=== PATIENT | male | born 1945 | race Caucasian/White ===

== ENCOUNTER 2021-02-17 02:22 | Emergency (ER) | payer MEDICARE, OTHER ==
[~2021-02-17] VITALS: Ht 175.3 cm; Wt 114.0 kg
[2021-02-17] MEDS ORDERED: IV NORMAL SALINE 1000ML BAG 1,000 ML IV SCH (02:30)
--- NOTE | 2021-02-17 02:40 | PHYS DOC ---
General Adult EDM: Chief Complaint: ABDOMINAL PAIN HPI: HPI: 75-year-old male past medical history significant for CVA with left-sided deficits, A. fib on Xarelto, CAD, PVD, hypertension, hyperlipidemia with condom catheter, presents to the ED BIBEMS from [facility] (concerned for [facility]) from home with complaints of left lower quadrant and left upper quadrant abdominal pain that started on Sunday. Last BM was today - brown, no brown, normal consistency. (JOSEPH WILLARD DO) Review of Systems: Review of Systems: Constitutional: Denies fever or chills. [] Eyes: Denies change in visual acuity. [] HENT: Denies nasal congestion or sore throat. [] Respiratory: Denies cough or shortness of breath. [] Cardiovascular: Denies chest pain or edema. [] GI: Denies nausea, vomiting, melena, hematochezia, hematemesis : Denies dysuria or hematuria Musculoskeletal: Denies back pain or joint pain. [] Integument: Denies rash or diaphoresis Neurologic: Denies headache, focal weakness or sensory changes. [] Endocrine: Denies polyuria or polydipsia. [] Lymphatic: Denies swollen glands. [] Psychiatric: Denies depression or anxiety. [] (JOSEPH WILLARD DO) Heart Score: C/O Chest Pain: No Risk Factors: Risk Factors: DM, Current or recent (<one month) smoker, HTN, HLP, family history of CAD, obesity. Risk Scores: Score 0 - 3: 2.5% MACE over next 6 weeks - Discharge Home Score 4 - 6: 20.3% MACE over next 6 weeks - Admit for Clinical Observation Score 7 - 10: 72.7% MACE over next 6 weeks - Early Invasive Strategies (JOSEPH WILLARD DO) C/O Chest Pain: N/A (SARAH TORRE MD) Current Medications: Current Medications Medications (Trade) Dose Ordered Sig/Darling Start Time Stop Time Status Last Admin Dose Admin Sodium Chloride 1,000 ml @ 1,000 mls/hr Q1H 02/17/21 02:30 02/17/21 03:29 UNV (JOSEPH WILLARD DO) Physical Exam: PE: Constitutional: Uncomfortable with movements, obese HENT: Normocephalic, atraumatic, Eyes: EOMI, conjunctiva normal, no discharge. Neck: Normal range of motion, supple, no nuchal rigidity Cardiovascular: S1/2 present, regular rhythm Lungs & Thorax: Speaking in full sentences, bilateral equal chest rise, no tachypnea or increased work of breathing Abdomen: soft, no focal tenderness but does have slight left upper diffuse and left lower diffuse abdominal pain, distended with no rigidity or guarding Skin: Warm, dry, no erythema, no rash. [] Back: No midline tenderness, no CVA tenderness. [] Extremities: No tenderness, no cyanosis, left upper extremity edema-no movement of left arm Neurologic: Alert and oriented X 3, no focal deficits noted. [] Psychologic: Affect normal, judgement normal, mood normal. [] (JOSEPH WILLARD DO) EKG: EKG: Sinus bradycardia 57 bpm, right axis deviation, QTC 475, Q waves in inferior leads, incomplete right bundle branch block, no ST elevations or ST depressions (JOSEPH WILLARD DO) Radiology/Procedures: Radiology/Procedures: IMAGING REPORT Signed PATIENT: JANNETH SORIANO ACCOUNT: [id number] : 1945 LOCATION: ER AGE: 75 SEX: M EXAM STATUS: REG ER ORD. PHYSICIAN: JOSEPH WILLARD DO REASON: LUQ/LLQ pain PROCEDURE: CT CHEST ABD PELVIS W/CONTRAST CT CHEST+ABD+PELVIS W History: Left lower quadrant and upper quadrant pain. Technique: CT of the chest, abdomen and pelvis were performed with intravenous contrast. Coronal and sagittal reconstructions were performed. Exposure: One or more of the following individualized dose reduction techniques were utilized for this examination: 1. Automated exposure control 2. Adjustment of the mA and/or kV according to patient size 3. Use of iterative reconstruction technique. Comparison: None Findings: Chest: Atheromatous plaque within the aorta. Coronary artery calcifications. No pathologic lymphadenopathy. Mild bilateral gynecomastia. Bilateral peripheral reticular and groundglass opacities. No consolidation. No pleural effusion. No pneumothorax. Abdomen and pelvis: The liver, spleen, adrenal glands, and pancreas unremarkable. Cholelithiasis. No gallbladder wall thickening. No biliary ductal dilatation. Calcified lymph nodes within the portal region, may relate to prior granulomatous disease or prior infection.. No pathologic lymphadenopathy. Mild left hydronephrosis. Left perinephric stranding. 6 mm left proximal ureteral obstructing calculus (series 4 image 41). Punctate nonobstructing left intrarenal calculus. Nonspecific right perinephric stranding. Small left mid re nal hypodensity, likely cyst. Normal appendix. No evidence of bowel obstruction. Bilateral fat-containing inguinal hernias. Small fat-containing umbilical hernia. Atheromatous plaque throughout the nonaneurysmal abdominal aorta and branch vessels. Bones: Grade 1 anterolisthesis L4 on L5. Multilevel lumbar spondylosis. Impression: Chest CT: 1. Bilateral peripheral reticular groundglass opacities, may relate to chronic interstitial lung disease. Abdomen and pelvis CT: 1. 6 mm left proximal ureteral obstructing calculus contributing to mild left hydronephrosis and perinephric stranding. 2. Additional nonobstructing left intrarenal calculus. 3. Cholelithiasis. Electronically signed by: Hardeep Parsons DO (02/17/2021 5:25 AM) [facility] DICTATED and SIGNED BY: HARDEEP PARSONS DO DATE: 02/17/21 [id number] ([facility]) Course & Med Decision Making: Course & Med Decision Making Pertinent Labs and Imaging studies reviewed. (See chart for details) Concern for left-sided obstructive uropathy with 6 mm stone, left hydronephrosis and perinephric fat stranding. Patient afebrile with no leukocytosis. No fluids given in ED given patient's bilateral lower extremity edema and left up per extremity edema. Bladder scan with 350 cc of urine. Pending straight cath with urinalysis. Will likely DC home. Patient calm and sleeping after Dilaudid. Due to shift change patient was signed out to oncoming physician Dr. Torre. (JOSEPH WILLARD DO) Course & Med Decision Making Accepted care at shift change, patient pending a cath UA. UA grossly infected, CT shows obstructing proximal kidney stone on the left and fat stranding around the left kidney. Concern for infected nephrolithiasis. Patient's labs are unremarkable, however he has multiple comorbidities and there is evidence of a proximal infection. Discussed he will need admitted for urology consult but that specialty is not available in this facility. Patient states he would like to go to the [facility] and if he is not able to go to [facility]. Attempted to contact [facility] but they said they would not be able to provide the services to the patient. Contacted [facility] who will accept the patient to the [facility] for urology consult. (SARAH TORRE MD) Dragon Disclaimer: Dragon Disclaimer: This electronic medical record was generated, in whole or in part, using a voice recognition dictation system. (JOSEPH WILLARD DO) Departure Departure Impression: Primary Impression: Acute unilateral obstructive uropathy Additional Impressions: Left nephrolithiasis Calculous pyelonephritis Disposition: 02 DC/TRF OTHER SHORT TERM HOS Condition: STABLE JOSEPH WILLARD DO Feb 17, 2021 02:40 SARAH TORRE MD Feb 17, 2021 08:58
[2021-02-17 02:56] LABS: BASO % 0 % (0-3); EOS # 0.3 x10^3/uL (0.0-0.7); EOS % 3 % (0-3); HEMATOCRIT 36.3 % (39.0-53.0); HEMOGLOBIN 12.3 g/dL (13.0-17.5); LYMPH % 21 % (24-48); MEAN CORPUSCULAR HEMOGLOBIN 30 pg (25-35); MEAN CORPUSCULAR HGB CONC 34 g/dL (31-37); MEAN CORPUSCULAR VOLUME 88 fL (79-100); MONO # 0.9 x10^3/uL (0.0-1.1); MONO % 10 % (0-9); NEUT # 6.2 x10^3/uL (1.8-7.7); NEUT % 66 % (31-73); PLATELET COUNT 216 x10^3/uL (140-400); RED BLOOD COUNT 4.13 x10^6/uL (4.30-5.70); RED CELL DISTRIBUTION WIDTH 13.6 % (11.5-14.5); WHITE BLOOD COUNT 9.4 x10^3/uL (4.0-11.0)
[2021-02-17 03:08] LABS: CALCIUM 8.4 mg/dL (8.5-10.1); GFR 73.2; POTASSIUM 4.2 mmol/L (3.5-5.1)
[2021-02-17 03:14] LABS: DIRECT BILIRUBIN 0.2 mg/dL (0.0-0.2); TOTAL BILIRUBIN 0.4 mg/dL (0.2-1.0); TOTAL PROTEIN 7.6 g/dL (6.4-8.2)
--- NOTE | 2021-02-17 04:08 | EKG ---
[facility] [address] [place] [address] Test Date: 2021-02-17 Test Time: 02:31:18 Pat Name: JANNETH SORIANO Department: Room: Gender: M [employer]ire Worker: : 1945 Requested By: JOSEPH WILLARD Order Number: [id number] Reading MD: Measurements Intervals [place] Rate: 57 P: 0 CO: 144 QRS: 84 QRSD: 82 T: 18 QT: 484 QTc: 475 Interpretive Statements SINUS RHYTHM QRS(T) CONTOUR ABNORMALITY CONSIDER ANTEROLATERAL INFARCT CONSISTENT WITH INFERIOR INFARCT PROBABLY OLD ABNORMAL ECG RI6.02 No previous ECG available for comparison
[2021-02-17] MEDS ORDERED: HYDROmorphone 2 MG/ML VIAL IVP ONE (04:30)
[2021-02-17] MEDS ORDERED: ONDANSETRON PF 4 MG/2 ML VIAL. IVP ONE (04:30)
[2021-02-17] MEDS ORDERED: CONTRAST GIVEN. MC PRN (04:45)
[2021-02-17] MEDS ORDERED: IOHEXOL 300 MG/ML 100ML VIAL. IV ONE ×2 (05:00→05:30)
[2021-02-17] MEDS ORDERED: ATOR40TA59 PO (05:21)
[2021-02-17] MEDS ORDERED: CELE100C PO (05:22)
[2021-02-17] MEDS ORDERED: CROM10DR2 EACHEYE (05:22)
[2021-02-17] MEDS ORDERED: BACL20TA PO (05:22)
[2021-02-17] MEDS ORDERED: CYAN100072 PO (05:23)
[2021-02-17] MEDS ORDERED: EPIPEN 2-P0.3 MG/0.3 IM (05:24)
[2021-02-17] MEDS ORDERED: DOCU100C28 PO (05:24)
[2021-02-17] MEDS ORDERED: FERR325T14 PO (05:26)
[2021-02-17] MEDS ORDERED: FLUO20CA20 PO (05:27)
--- NOTE | 2021-02-17 05:27 | RAD ---
CT CHEST+ABD+PELVIS W History: Left lower quadrant and upper quadrant pain. Technique: CT of the chest, abdomen and pelvis were performed with intravenous contrast. Coronal and sagittal reconstructions were performed. Exposure: One or more of the following individualized dose reduction techniques were utilized for thi s examination: 1. Automated exposure control 2. Adjustment of the mA and/or kV according to patient size 3. Use of iterative reconstruction technique. Comparison: None Findings: Chest: Atheromatous plaque within the aorta. Coronary artery calcifications. No pathologic lymphadeno ramon. Mild bilateral gynecomastia. Bilateral peripheral reticular and groundglass opacities. No consolidation. No pleural effusion. No p neumothorax. Abdomen and pelvis: The liver, spleen, adrenal glands, and pancreas unremarkable. Cholelithiasis. No gallbladder wall thickening. No biliary ductal dilatation. Calcified lymph nodes within the portal re gion, may relate to prior granulomatous disease or prior infection.. No pathologic lymphadenopathy. Mild left hydronephrosis. Left perinephric stranding. 6 mm left proximal ureteral obstructing calculu s (series 4 image 41). Punctate nonobstructing left intrarenal calculus. Nonspecific right perinephri c stranding. Small left mid renal hypodensity, likely cyst. Normal appendix. No evidence of bowel obstruction. Bilateral fat-containing inguinal hernias. Small f at-containing umbilical hernia. Atheromatous plaque throughout the nonaneurysmal abdominal aorta and branch vessels. Bones: Grade 1 anterolisthesis L4 on L5. Multilevel lumbar spondylosis. Impression: Chest CT: 1. Bilateral peripheral reticular groundglass opacities, may relate to chronic interstitial lung dis ease. Abdomen and pelvis CT: 1. 6 mm left proximal ureteral obstructing calculus contributing to mild left hydronephrosis and per inephric stranding. 2. Additional nonobstructing left intrarenal calculus. 3. Cholelithiasis. Electronically signed by: Hardeep Parsons DO (02/17/2021 5:25 AM) [facility]
[2021-02-17] MEDS ORDERED: MONT10TA49 PO (05:29)
[2021-02-17] MEDS ORDERED: LOSA-73 PO (05:29)
[2021-02-17] MEDS ORDERED: RIVA20TA2 PO (05:30)
[2021-02-17] MEDS ORDERED: SENN8.6T11 PO (05:30)
[2021-02-17] MEDS ORDERED: TRAZ-118 PO (05:31)
[2021-02-17] MEDS ORDERED: DICL100G4 TP (05:31)
[2021-02-17] MEDS ORDERED: LORA10TA3 PO (05:32)
[2021-02-17] MEDS ORDERED: ERGO500027 PO (05:32)
[2021-02-17] MEDS ORDERED: LIDO700A21 TP (05:32)
[2021-02-17] MEDS ORDERED: METO25TA4 PO (05:33)
[2021-02-17] MEDS ORDERED: TAMSULOSIN 0.4 MG CAP.ER.24H. PO ONE (06:00)
[2021-02-17] MEDS ORDERED: KETOROLAC 15 MG/ML VIAL. IVP ONE (06:00)
[2021-02-17 06:34] LABS: BILIRUBIN,URINE NEGATIVE (NEG); CLARITY,URINE CLEAR; COLOR,URINE YELLOW; NITRITE,URINE POSITIVE (NEG); PH,URINE 5.5 (<5.0-8.0); PROTEIN,URINE NEGATIVE (NEG-TRACE); UROBILINOGEN,URINE 0.2 mg/dL (0.2 mg/dL)
[2021-02-17 06:53] LABS: BACTERIA,URINE MANY /HPF (0-FEW); BARBITURATES NEG (NEG); BENZODIAZEPINES NEG (NEG); CANNABINOIDS NEG (NEG); COCAINE NEG (NEG); METHADONE NEG (NEG); OPIATES NEG (NEG); PHENCYCLIDINE NEG (NEG); WBC,URINE TNTC /HPF (0-4)
[2021-02-17 06:54] LABS: AMPHETAMINE/METHAMPHETAMINE NEG (NEG)
[2021-02-17] MEDS ORDERED: cefTRIAXone IV Push 1 GM VIAL. IVP ONE (07:45)
[2021-02-17 09:30] VITALS: BP 131/62
== END 2021-02-17 09:50 | disposition short-term general hospital (02) ==
LOC: ER 02:22
DX: N13.8 Other obstructive and reflux uropathy (principal); N13.2 Hydronephrosis with renal and ureteral calculous obstruction; R10.12 Left upper quadrant pain; R10.84 Generalized abdominal pain; I48.20 Chronic atrial fibrillation, unspecified; I11.9 Hypertensive heart disease without heart failure; Z86.73 Personal history of transient ischemic attack (TIA), and cerebral infarction without residual deficits; Z79.899 Other long term (current) drug therapy
CPT/HCPCS: 36415; 71260; 74177; 80048; 80076; 80307; 81001; 82550; 83605; 83690; 84484; 85025; 87040; 87077; 87086; 87186; 93005; 96374; 96375; 99285; J0696; J1170; J1885; J2405; Q9967